=== PATIENT | male | born 1995 | race Caucasian/White ===

== ENCOUNTER 2018-01-20 11:31 | Emergency (ER) | payer OTHER ==
[2018-01-20] MEDS ORDERED: OXYCODONE HCL IR 5 MG TABLET PO ONE (11:50)
--- NOTE | 2018-01-20 11:51 | ER Document Report ---
ED Medical Screen (RME) - General Chief Complaint: Thumb Injury Stated Complaint: THUMB INJURY Time Seen by Provider: 01/20/18 11:48 Notes: RAPID MEDICAL EVALUATION DISCLOSURE I have seen this patient as part of a Rapid Medical Evaluation and, if applicable, placed any initially appropriate orders. The patient will be seen and fully evaluated, including a full history and physical exam, by a provider ( in Main ED or Fast Track) when a room becomes available. 22-year-old male here with complaints of left thumb pain after he cut it on a table saw just prior to arrival. He had some bleeding however was able to control it with pressure. He has not taken anything for pain. His tetanus is up-to-date (states he just got out of the ). EXAM Distal left thumb with complicated laceration Nonbleeding at this time TRAVEL OUTSIDE OF THE [place] IN LAST 30 DAYS: No - Related Data Allergies/Adverse Reactions: No Known Allergies Allergy (Verified 01/20/18 11:32) Physical Exam - Vital signs Vitals: Temp Pulse Resp BP Pulse Ox 98.5 F 86 20 155/81 H 98 01/20/18 11:39 01/20/18 11:39 01/20/18 11:39 01/20/18 11:39 01/20/18 11:39 Course - Vital Signs Vital signs: Temp Pulse Resp BP Pulse Ox 98.5 F 86 20 155/81 H 98 01/20/18 11:39 01/20/18 11:39 01/20/18 11:39 01/20/18 11:39 01/20/18 11:39
--- NOTE | 2018-01-20 12:40 | RADIOLOGY REPORT (SQ) ---
EXAM DESCRIPTION: FINGER LEFT COMPLETED DATE/TIME: 01/20/2018 12:22 pm REASON FOR STUDY: L thumb injury; fracture? COMPARISON: None. NUMBER OF VIEWS: Three views. TECHNIQUE: AP, lateral, and oblique images acquired of the left thumb of the left hand. LIMITATIONS: None. FINDINGS: MINERALIZATION: Normal. BONES: Deformity of the distal tuft of the thumb. Several very small ossific fragments in the volar soft tissues adjacent to the superior aspect distal tuft, may be on the basis of fracture. SOFT TISSUES: No soft tissue swelling. No foreign body. OTHER: No other significant finding. IMPRESSION: 1. Several very small os ossific fragments in the volar soft tissues adjacent to the sup erior aspect of the distal tuft of the thumb, may be on the basis of fracture. COMMENT: SITE OF TRAUMA/COMPLAINT MARKED/STAMP COMPLETED: YES. TECHNICAL DOCUMENTATION: JOB ID: [id number] [employer]- All Rights Reserved Reading location - IP/workstation name: [email or web address]
[2018-01-20] MEDS ORDERED: LIDOCAINE 1% INJ-PF (10 MG/ML) 30 ML SDV INJ ONE (14:00)
[2018-01-20] MEDS ORDERED: CEPHALEXIN 500 MG CAPSULE PO ONE (14:01)
--- NOTE | 2018-01-20 14:07 | ER Document Report ---
HPI - HPI Pain Level: 5 Notes: Patient is a 22-year-old male no significant past medical history presents to the ED complaining of a laceration to his left thumb status post injury by a table saw a couple hours ago. Patient states that he does have pain associated , but does not radiate. He still able to move some without difficulties. He denies any IV drug use. Denies any drug allergies. Denies any headache, fever , neck pain, URI, sore throat, chest pain, palpitations, syncope, cough, shortness of breath, wheeze, dyspnea, abdominal pain, nausea/vomiting/diarrhea, urinary retention, dysuria, hematuria, numbness/tingling, muscle paralysis/ weakness, or rash. - ROS Systems Reviewed and Negative: Yes All other systems reviewed and negative - DERM Skin Color: Normal Past Medical History - Social History Smoking Status: Never Smoker Chew tobacco use (# tins/day): No Frequency of alcohol use: None Drug Abuse: None Family History: Reviewed & Not Pertinent Patient has suicidal ideation: No Patient has homicidal ideation: No Renal/ Medical History: Denies: Hx Peritoneal Dialysis Vertical Provider Document - CONSTITUTIONAL Agree With Documented VS: Yes Notes: PHYSICAL EXAMINATION: GENERAL: Well-appearing, well-nourished and in no acute distress. LUNGS: Breath sounds clear to auscultation bilaterally and equal. No wheezes rales or rhonchi. HEART: Regular rate and rhythm without murmurs, rubs, gallops. Musculoskeletal: Left thumb: + 1.5cm laceration to the distal anterior thumb. + skin avulsion to the medial side. FROM to passive/active. Strength 5+/5. + tenderness to the distal thumb to palp. N/V intact distal otherwise. Extremities: No cyanosis, clubbing, or edema b/l. Peripheral pulses 2+. Capillary refill less than 3 seconds. NEUROLOGICAL: Normal speech, normal gait. PSYCH: Normal mood, normal affect. SKIN: Warm, Dry, normal turgor, no rashes or lesions noted. - INFECTION CONTROL TRAVEL OUTSIDE OF THE [place] IN LAST 30 DAYS: No Course - Re-evaluation Re-evalutation: 01/20/18 14:[address] Rojas. We will place on antibiotics & wound dressing after suture repair, and have him f/u tomorrow morning. 01/20/18 14:42 Patient is an afebrile, well-hydrated, 22-year-old male who presents to the ED with an open fracture to his left thumb with a distal tuft fracture. Vitals are acceptable. PE is otherwise unremarkable. Wound was thoroughly irrigated and cleansed. Wound edges were approximated appropriately utilizing 6 simple interrupted sutures. Wound dressing was placed and wound instructions reviewed along with a splint provided. See x-ray result. Conservative measures for symptoms. Keflex given p.o. today and I will send him home with a prescription for Keflex. Recheck with orthopedics in the morning. Return to the ED with any worsening/concerning symptoms otherwise as reviewed in discharge. Patient is in agreement. - Vital Signs Vital signs: Temp Pulse Resp BP Pulse Ox 98.5 F 86 20 155/81 H 98 01/20/18 11:39 01/20/18 11:39 01/20/18 11:39 01/20/18 11:39 01/20/18 11:39 Procedures - Laceration/Wound Repair Left Thumb Time completed: 14:30 Wound length (cm): 1.5 Wound's Depth, Shape: Superficial, Irregular Laceration pre-procedure: Sterile PPE donned, Sterile drapes applied, Other - chlorhexadine Anesthetic type: 1% Lidocaine Volume Anesthetic (mLs): 5 Wound explored: Clean, No foreign body removed Irrigated w/ Saline (mLs): 120 Wound Debrided: none Wound Repaired With: Sutures Suture Size/Type: 4:0 Number of Sutures: 4 Layer Closure?: No Post-procedure wound care: Sterile dressing applied, Splint applied Post-procedure NV exam normal: Yes Complications: No Discharge - Discharge Clinical Impression: Open fracture of tuft of distal phalanx of left thumb Condition: Stable Disposition: HOME, SELF-CARE Instructions: Open Finger Tuft Fracture ([facility]) Additional Instructions: Rest, Ice, Compression, Elevation Use splint as directed Tylenol/ibuprofen as needed Light stretches daily Strength exercises as able Moist heat and massage may help F/u with your PCP in 3-5 days for a recheck Call orthopedics today as Dr. Rojas, Orthopedics, would like to see you tomorrow morning Return to the ED with any worsening symptoms and/or development of fever, headache, chest pain, palpitations, syncope, shortness of breath, trouble breathing, abdominal pain, n/v/d, muscle weakness/paralysis, numbness/tingling, swelling, redness, or other worsening symptoms that are concerning to you. Prescriptions: Cephalexin Monohydrate [Keflex 500 mg Capsule] 500 mg PO TID #30 capsule Forms: Elevated Blood Pressure Referrals: ADIEL ROJAS MD [ACTIVE STAFF] - Follow up tomorrow
[2018-01-20 14:51] VITALS: BP 142/88
== END 2018-01-20 14:50 | disposition home or self-care (01) ==
LOC: ER 11:31
DX: S62.522B Displaced fracture of distal phalanx of left thumb, initial encounter for open fracture (principal); W29.8XXA Contact with other powered hand tools and household machinery, initial encounter
CPT/HCPCS: 12001; 99283; 73140; J3490